=== PATIENT | male | born 1945 | race African-American/Black ===

== ENCOUNTER → 2022-06-04 | Outpatient (CLI) | payer SELFPAY ==
[2022-06-04 09:44] LABS: MEAN CORP HGB 30.7 pg (26-34); RED CELL DISTRIBUTION WIDTH 13.1 % (11.5-14.5)
[2022-06-04 09:57] LABS: CARBON DIOXIDE 29.6 mmol/L (20.0-32)
--- NOTE | 2022-06-04 15:43 | DIREP ---
PROCEDURE:NM BONE SCAN TOTAL BODY/JARROD COMPARISON:None. INDICATIONS:PROSTATE CANCER TECHNIQUE:After obtaining the patient's consent, Technetium 99m MDP was injected intravenously. Whole-body planar images were obtained approximately two hours later. PHARMACEUTICAL:Technetium 99m MDP, 25.9 mCi. FINDINGS: Distribution of radiotracer between the soft tissues and skeleton is within normal limits. Renal excretion appears symmetric. Activity about the major and minor joints felt to be related degenerative changes. No evidence of metastatic disease. CONCLUSION:No evidence of metastatic disease Dictated by: Michael Aldrich DO on 06/04/2022 at 03:37 PM
== END | disposition home or self-care (01) ==
LOC: NPLAB 06-03 06:55
PROVIDERS: ATTEND Family Medicine
DX: I10 Essential (primary) hypertension (principal); C61 Malignant neoplasm of prostate
CPT/HCPCS: 78306; 80061; 80053; 85027; 36415; 84153; A9512

== ENCOUNTER → 2022-06-09 | Outpatient (CLI) | payer SELFPAY ==
--- NOTE | 2022-06-09 13:10 | DIREP ---
PROCEDURE:CT ABDOMEN/PELVIS W/ CONTRAST COMPARISON:None. INDICATIONS:PROSTATE CA TECHNIQUE:Axial images were created through the abdomen and pelvis with non-ionic intravenous contrast material. No oral contrast was administered. Sagittal and coronal reconstructions were performed from source images. FINDINGS: LUNG BASES:Subsegmental atelectasis/scarring in the right middle lobe. No consolidation or pulmonary nodule is seen. No pleural effusion. Normal heart size. Coronary calcifications. LIVER:Fluid density focus in the caudate measuring 1.2 cm in keeping with a cyst. No suspicious hepatic lesion. BILIARY:Normal. No visible dilatation or calcification. PANCREAS:Mild diffuse dilatation of the pancreatic duct measuring up to 5 mm in the pancreatic head. No focal lesion is seen. SPLEEN:Normal. No enlargement or focal lesion. ADRENALS:Normal. No mass or enlargement. URINARY TRACT:The kidneys enhance symmetrically without hydronephrosis. Bilateral renal cysts, right larger than left, measuring 6.3 cm in the upper pole and 6.6 cm in the lower pole the right kidney. AORTA/VASCULAR:There are aortic atherosclerotic calcifications present. No aneurysm. RETROPERITONEUM:Normal. No mass or adenopathy. BOWEL/MESENTERY:The appendix is visualized and appears normal. There is no intestinal obstruction, free fluid, free air or mesenteric inflammatory changes. ABDOMINAL WALL:Subcutaneous stranding in the buttocks bilaterally, nonspecific. Small fat containing left inguinal hernia. PELVIC ORGANS:The prostate and seminal vesicles are surgically absent. Soft tissue nodule in the right surgical bed measuring 1.9 x 1.5 cm. Urinary bladder is unremarkable for degree of distension. BONES:Degenerative changes in the spine. No osteolytic or osteoblastic lesions are seen. OTHER:Negative. CONCLUSION: 1. Status post prostatectomy. There is a soft tissue nodule in the right surgical bed concerning for residual/recurrent disease. Correlate with PSA. 2. No adenopathy or other evidence of metastatic disease in the abdomen or pelvis. 3. Mild diffuse dilatation of the pancreatic duct. No focal hepatic lesion is identified. Correlation with endoscopic ultrasound may be of benefit. 4. Bilateral renal cysts. Cyst in the caudate of the liver. 5. Atherosclerosis, small fat containing left inguinal hernia, and other findings as above. Dictated by: Shaheen Gold M.D. on 06/09/2022 at 12:58 PM
== END | disposition home or self-care (01) ==
LOC: RAD 08:56
PROVIDERS: ATTEND Family Medicine
DX: K40.90 Unilateral inguinal hernia, without obstruction or gangrene, not specified as recurrent (principal); K86.89 Other specified diseases of pancreas; N28.1 Cyst of kidney, acquired; K76.89 Other specified diseases of liver; Z90.79 Acquired absence of other genital organ(s)
CPT/HCPCS: 74177; 36415; 82565; 84443; 86140; Q9965